=== PATIENT | male | born 1955 | race Caucasian/White ===

== ENCOUNTER 2020-10-10 04:40 | Observation (INO) | payer BC ==
--- NOTE | 2020-10-10 05:09 | ERPHSYRPT ---
- History of Present Illness Time Seen by Provider: 10/10/20 05:08 Source: patient, EMS Exam Limitations: no limitations Physician History: This is an obese 65-year-old gentleman who has a history of hypertension and gastroesophageal reflux disease and presents to the emergency department with body aches, fever, cough, shortness of breath, weakness and decreased oral i ntake over the past 4 days. Patient was diagnosed with COVID-19 4 days ago. Patient spouse is in this hospital for treatment of Covid symptoms. Patient had one episode of vomiting after ingesting Gatorade yesterday. He has no diarrhea. He has no chest pain. He is mildly short of breath. He last took Tylenol at 2300 on 10/09/2020. Timing/Duration: day(s) (4) Fever Severity: moderate Fever Therapy [employer]: Acetaminophen (On 10/09/2020 at 2300) Associated Symptoms: cough, shortness of breath, weakness Allergies/Adverse Reactions: No Known Drug Allergies Allergy (Unverified 10/10/20 04:48) Home Medications: Amlodipine Besylate 1 tab PO DAILY 10/10/20 [History] Aspirin 1 tab PO DAILY 10/10/20 [History] Atorvastatin Calcium 1 tab PO DAILY 10/10/20 [History] Lansoprazole [Prevacid] 1 tab PO DAILY 10/10/20 [History] Losartan Potassium [Cozaar] 1 tab PO BID 10/10/20 [History] Metoprolol Tartrate 1 tab PO BID 10/10/20 [History] Tamsulosin HCl 1 tab PO DAILY 10/10/20 [History] Ticagrelor [Brilinta] 1 tab PO BID 10/10/20 [History] Trazodone HCl 1 tab PO HS 10/10/20 [History] Travel Risk - International Travel Have you traveled outside of the country in past 3 weeks: No - Coronavirus Screening Symptoms: Fever, Cough: New Onset, Shortness of Breath, Headaches/Body Aches/Fatigue Close contact with a COVID-19 positive Pt in past 14-21 Days: Yes - Review of Systems Constitutional: Fever, Weakness Eyes: No Symptoms Ears, Nose, & Throat: No Symptoms Respiratory: Cough, Dyspnea Cardiac: No Symptoms Abdominal/Gastrointestinal: No Symptoms Genitourinary Symptoms: No Symptoms Musculoskeletal: No Symptoms Skin: No Symptoms Neurological: No Symptoms Psychological: No Symptoms Endocrine: No Symptoms Hematologic/Lymphatic: No Symptoms Immunological/Allergic: No Symptoms All Other Systems: Reviewed and Negative - Past Medical History Pertinent Past Medical History: Yes - Past Surgical History Past Surgical History: Yes - Nursing Vital Signs Nursing Vital Signs: Initial Vital Signs Temperature 100.5 F 10/10/20 04:43 Pulse Rate 103 H 10/10/20 04:43 Respiratory Rate 24 10/10/20 04:43 O2 Sat by Pulse Oximetry 96 10/10/20 04:43 Pain Scale Pain Intensity 4 - Physical Exam General Appearance: mild distress, alert, anxiety, obese Eye Exam: PERRL/EOMI, eyes nml inspection ENT Exam: normal ENT inspection, no apparent trauma, hearing grossly normal, TMs normal Neck Exam: normal inspection, non-tender, supple, full range of motion Respiratory Exam: normal breath sounds, lungs clear, no respiratory distress, no accessory muscle use, respiratory distress (Mild), No chest non-tender Cardiovascular/Chest Exam: normal heart sounds, tachycardia Gastrointestinal/Abdominal Exam: soft, non tender, no distention, no mass, no guarding, no ecchymosis, no organomegaly, no pulsatile mass, normal bowel sounds Rectal Exam: not done Extremity Exam: non-tender, normal range of motion, normal inspection, normal capillary refill, no calf tenderness, no pedal edema, pelvis stable, No calf tenderness Neurologic Exam: alert, oriented x 3, cooperative, cork tile floor layer II-XII nml as tested, normal mood/affect, nml cerebellar function, nml station & gait Skin Exam: normal color, warm, dry Lymphatic: No adenopathy SpO2 Interpretation: normal O2 Delivery: Room Air - Course Nursing assessment & vital signs reviewed: Yes EKG Interpreted by Me: RATE (100), Sinus Rhythm, NORMAL AXIS, NORMAL INTERVALS, NORMAL QRS, NORMAL ST-T, Other (No acute ischemic changes on today's EKG. No comparison EKG available) Ordered Tests: Active Orders 24 hr Category Date Time Status Hand Trimmer STAT Care 10/10/20 05:10 Active EKG-ER Only STAT Care 10/10/20 05:09 Active Isolation, Initiate & Maintain STAT Care 10/10/20 05:09 Active Pulse Oximetry (ED) ROUTINE Care 10/10/20 05:10 Active CHEST 1 VIEW (PORTABLE) Stat Exams 10/10/20 05:12 Taken BLOOD CULTURE Stat Lab 10/10/20 05:25 Received CBC W DIFF Stat Lab 10/10/20 05:25 Completed CMP Stat Lab 10/10/20 05:25 Completed D-DIMER QUANTITATIVE Stat Lab 10/10/20 05:25 Completed Ferritin Stat Lab 10/10/20 05:25 Completed LDH-LACTATE DEHYDROGENASE Stat Lab 10/10/20 05:25 Completed Lactic Acid Stat Lab 10/10/20 05:20 Completed [place] Screen Stat Lab 10/10/20 05:25 Completed TROPONIN Q3H Lab 10/10/20 05:25 Completed TROPONIN Q3H Lab 10/10/20 08:15 Ordered TROPONIN Q3H Lab 10/10/20 11:15 Ordered TROPONIN Q3H Lab 10/10/20 14:15 Ordered TROPONIN Q3H Lab 10/10/20 17:15 Ordered Transfer Order Routine Transfer 10/10/20 Ordered Medication Summary Generic Name Dose Route Start Last Admin Trade Name Freq PRN Reason Stop Dose Admin Sodium Chloride 1,000 mls @ 100 mls/hr 10/10/20 05:15 10/10/20 05:32 Sodium Chloride 0.9% 1000 Ml IV 11/09/20 05:14 100 mls/hr .Q10H DINESH Administration Discontinued Medications Generic Name Dose Route Start Last Admin Trade Name Freq PRN Reason Stop Dose Admin Acetaminophen 650 mg 10/10/20 05:12 10/10/20 05:33 Tylenol 325 Mg PO 10/10/20 05:13 650 mg STAT STA Administration Acetaminophen Confirm 10/10/20 05:30 Tylenol 325 Mg Administered 10/10/20 05:31 Dose 650 mg .ROUTE .STK-MED ONE Dexamethasone Sodium Phosphate 8 mg 10/10/20 06:08 10/10/20 06:15 Decadron 10mg Inj. IV 10/10/20 06:09 8 mg STAT ONE Administration Dexamethasone Sodium Phosphate Confirm 10/10/20 06:13 Decadron 10mg Inj. Administered 10/10/20 06:14 Dose 10 mg .ROUTE .STK-MED ONE Ibuprofen 600 mg 10/10/20 05:12 10/10/20 05:34 Motrin 600 Mg PO 10/10/20 05:13 600 mg STAT STA Administration Ibuprofen Confirm 10/10/20 05:30 Motrin 600 Mg Administered 10/10/20 05:31 Dose 600 mg .ROUTE .[employer] ONE Ondansetron HCl 4 mg 10/10/20 05:12 10/10/20 05:32 Zofran 4 Mg/2 Ml Vial IV 10/10/20 05:13 4 mg STAT STA Administration Ondansetron HCl Confirm 10/10/20 05:30 Zofran 4 Mg/2 Ml Vial Administered 10/10/20 05:31 Dose 4 mg .ROUTE .[facility] ONE Lab/Rad Data: Laboratory Result Diagrams 10/10/20 05:25 10/10/20 05:25 Laboratory Results 10/10/20 10/10/20 10/10/20 Range/Units 05:25 05:25 05:25 WBC (4.0-10.5) K/mm3 RBC (4.1-5.6) M/mm3 Hgb (12.5-18.0) gm/dl Hct (42-50) % MCV (78-100) fl MCH (26-32) pg MCHC (32-36) g/dl RDW (11.5-14.0) % Plt Count (150-450) K/mm3 MPV (7.5-11.0) fl Gran % (36.0-66.0) % Eos # (Auto) (0-0.5) Absolute Lymphs (auto) (1.0-4.6) Absolute Monos (auto) (0.0-1.3) Lymphocytes % (24.0-44.0) % Monocytes % (0.0-12.0) % Eosinophils % (0.00-5.0) % Basophils % (0.0-0.4) % Absolute Granulocytes (1.4-6.9) Basophils # (0-0.4) D-Dimer (215-500) ng/mL Sodium (137-145) mmol/L Potassium (3.5-5.1) mmol/L Chloride (98-107) mmol/L Carbon Dioxide (22-30) mmol/L Anion Gap (5-15) MEQ/L BUN (9-20) mg/dL Creatinine (0.66-1.25) mg/dL Estimated GFR ML/MIN Glucose (74-106) mg/dL Lactic Acid (0.4-2.0) Calcium (8.4-10.2) mg/dL Ferritin 263 (17.9-464) ng/mL Total Bilirubin (0.2-1.3) mg/dL AST (17-59) U/L ALT (0-50) U/L Alkaline Phosphatase (38-126) U/L Lactate Dehydrogenase (120-246) U/L Troponin I < 0.012 (0.000-0.034) ng/mL Serum Total Protein (6.3-8.2) g/dL Albumin (3.5-5.0) g/dL Monoscreen NEGATIVE (Negative) 10/10/20 10/10/20 10/10/20 Range/Units 05:25 05:25 05:25 WBC 4.8 (4.0-10.5) K/mm3 RBC 4.22 (4.1-5.6) M/mm3 Hgb 13.0 (12.5-18.0) gm/dl Hct 39.3 L (42-50) % MCV 93.1 (78-100) fl MCH 30.8 (26-32) pg MCHC 33.1 (32-36) g/dl RDW 12.2 (11.5-14.0) % Plt Count 125 L (150-450) K/mm3 MPV 9.5 (7.5-11.0) fl Gran % 84.6 H (36.0-66.0) % Eos # (Auto) 0 (0-0.5) Absolute Lymphs (auto) 0.38 L (1.0-4.6) Absolute Monos (auto) 0.36 (0.0-1.3) Lymphocytes % 7.9 L (24.0-44.0) % Monocytes % 7.5 (0.0-12.0) % Eosinophils % 0.0 (0.00-5.0) % Basophils % 0.0 (0.0-0.4) % Absolute Granulocytes 4.04 (1.4-6.9) Basophils # 0 (0-0.4) D-Dimer 435 (215-500) ng/mL Sodium 129 L (137-145) mmol/L Potassium 4.3 (3.5-5.1) mmol/L Chloride 97 L (98-107) mmol/L Carbon Dioxide 21 L (22-30) mmol/L Anion Gap 14.9 (5-15) MEQ/L BUN 20 (9-20) mg/dL Creatinine 1.19 (0.66-1.25) mg/dL Estimated GFR > 60.0 ML/MIN Glucose 190 H (74-106) mg/dL Lactic Acid (0.4-2.0) Calcium 7.8 L (8.4-10.2) mg/dL Ferritin (17.9-464) ng/mL Total Bilirubin 0.50 (0.2-1.3) mg/dL AST 30 (17-59) U/L ALT 25 (0-50) U/L Alkaline Phosphatase 57 (38-126) U/L Lactate Dehydrogenase 204 (120-246) U/L Troponin I (0.000-0.034) ng/mL Serum Total Protein 6.6 (6.3-8.2) g/dL Albumin 3.8 (3.5-5.0) g/dL Monoscreen (Negative) 10/10/20 Range/Units 05:20 WBC (4.0-10.5) K/mm3 RBC (4.1-5.6) M/mm3 Hgb (12.5-18.0) gm/dl Hct (42-50) % MCV (78-100) fl MCH (26-32) pg MCHC (32-36) g/dl RDW (11.5-14.0) % Plt Count (150-450) K/mm3 MPV (7.5-11.0) fl Gran % (36.0-66.0) % Eos # (Auto) (0-0.5) Absolute Lymphs (auto) (1.0-4.6) Absolute Monos (auto) (0.0-1.3) Lymphocytes % (24.0-44.0) % Monocytes % (0.0-12.0) % Eosinophils % (0.00-5.0) % Basophils % (0.0-0.4) % Absolute Granulocytes (1.4-6.9) Basophils # (0-0.4) D-Dimer (215-500) ng/mL Sodium (137-145) mmol/L Potassium (3.5-5.1) mmol/L Chloride (98-107) mmol/L Carbon Dioxide (22-30) mmol/L Anion Gap (5-15) MEQ/L BUN (9-20) mg/dL Creatinine (0.66-1.25) mg/dL Estimated GFR ML/MIN Glucose (74-106) mg/dL Lactic Acid 1.3 (0.4-2.0) Calcium (8.4-10.2) mg/dL Ferritin (17.9-464) ng/mL Total Bilirubin (0.2-1.3) mg/dL AST (17-59) U/L ALT (0-50) U/L Alkaline Phosphatase (38-126) U/L Lactate Dehydrogenase (120-246) U/L Troponin I (0.000-0.034) ng/mL Serum Total Protein (6.3-8.2) g/dL Albumin (3.5-5.0) g/dL Monoscreen (Negative) - Progress Progress: improved, re-examined Progress Note: 10/10/20 06:07 Chest x-ray shows mild cardiomegaly. There is bibasilar ground glass appearance present 10/10/20 06:29 Medical decision making: This patient is known Covid 19+. He has complaints of shortness of breath, cough, fevers and body aches. I spoke with Dr. Cani Mills and we both feel that the patient be best served by placing him observation on the Covid unit. We will provide the patient with an antitussive medication, remdesivir, low rate IV fluid, Tylenol and Decadron intravenously. 10/10/20 06:30 Discussed with : Ashley Counseled pt/family regarding: lab results, diagnosis, need for follow-up, rad results - Departure Departure Disposition: Observation Clinical Impression: COVID-19 virus infection, Fever Condition: Stable Critical Care Time: Yes Critical Care Time(excluding separately billable procedures): Critical 30-74 mins Referrals: CHRIS ROGERS MD [Primary Care Provider] -
[2020-10-10] MEDS ORDERED: TYLENOL 325 MG PO STA (05:12)
[2020-10-10] MEDS ORDERED: MOTRIN 600 MG PO STA (05:12)
[2020-10-10] MEDS ORDERED: Zofran 4 MG/2 ML VIAL IV STA (05:12)
[2020-10-10] MEDS ORDERED: Sodium Chloride 0.9% 1000 ML 1,000 ML IV SCH (05:15)
[2020-10-10] MEDS ORDERED: TYLENOL 325 MG ONE (05:30)
[2020-10-10] MEDS ORDERED: Zofran 4 MG/2 ML VIAL ONE (05:30)
[2020-10-10] MEDS ORDERED: MOTRIN 600 MG ONE (05:30)
[2020-10-10 05:34] LABS: Absolute Neutrophil Ct (ANC) 4.04 (1.4-6.9); Basophil (Absolute #) 0 (0-0.4); Eosinophil (Absolute #) 0 (0-0.5); Hematocrit 39.3 % (42-50); Lymphocyte (Absolute #) 0.38 (1.0-4.6); Lymphocytes % 7.9 % (24.0-44.0); Mean Cell Volume 93.1 fl (78-100); Mean Corpuscular Hemoglobin 30.8 pg (26-32); Mean Corpuscular Hgb Concent. 33.1 g/dl (32-36); Mean Platelet Volume 9.5 fl (7.5-11.0); Monocyte (Absolute #) 0.36 (0.0-1.3); Monocytes % 7.5 % (0.0-12.0); Neutrophil % 84.6 % (36.0-66.0); Platelet Count 125 K/mm3 (150-450); Red Blood Count 4.22 M/mm3 (4.1-5.6); Red Cell Distribution Width 12.2 % (11.5-14.0); White Blood Count 4.8 K/mm3 (4.0-10.5)
[2020-10-10 05:56] LABS: ALBUMIN 3.8 g/dL (3.5-5.0); ALKALINE PHOSPHATASE 57 U/L (38-126); ANION GAP 14.9 MEQ/L (5-15); BLOOD UREA NITROGEN 20 mg/dL (9-20); CHLORIDE 97 mmol/L (98-107); Calcium 7.8 mg/dL (8.4-10.2); Carbon Dioxide 21 mmol/L (22-30); Creatinine 1 1.19 mg/dL (0.66-1.25); EST GLOMERULAR FILTRATION RATE > 60.0 ML/MIN; Glucose 190 mg/dL (74-106); LDH-LACTATE DEHYDROGENASE 204 U/L (120-246); Potassium 4.3 mmol/L (3.5-5.1); SGOT/AST 30 U/L (17-59); SGPT/ALT 25 U/L (0-50); SODIUM 129 mmol/L (137-145); Total Protein 6.6 g/dL (6.3-8.2)
[2020-10-10] MEDS ORDERED: DECADRON 10MG INJ. IV ONE (06:08)
[2020-10-10] MEDS ORDERED: DECADRON 10MG INJ. ONE (06:13)
[2020-10-10 07:34] LABS: Appearance CLEAR (CLEAR); Bilirubin NEGATIVE (NEGATIVE); Blood NEGATIVE Ery/ul (0-5); Glucose >=500 mg/dL (NEGATIVE); Ketones SMALL (NEGATIVE); Leukocyte Esterase NEGATIVE (NEGATIVE); Nitrite NEGATIVE (NEGATIVE); Protein,Urine Dip 30 (Negative); Specific Gravity 1.012 (1.005-1.025); Urobilinogen NEGATIVE mg/dL (0-1)
--- NOTE | 2020-10-10 07:53 | XRAY ---
Indication: Fever and cough. Covid 19. Comparison: February 16, 2011. Portable chest less inflated with new subtle hazy bibasilar interstitial alveolar opacities. No consolidation/large effusion. Heart not enlarged. Bony thorax intact with mild degenerative changes.
[2020-10-10] MEDS ORDERED: HYDROCODONE-ACETAMIN 2.5-108/5 ML SOLUTION PO PRN (08:19)
[2020-10-10] MEDS ORDERED: Zofran 4 MG/2 ML VIAL IV PRN (08:19)
[2020-10-10] MEDS ORDERED: REMDESIVIR 200 MG in Sodium Chloride 0.9% 250 ML 250 ML IV ONE (09:00)
[2020-10-10] MEDS: Sodium Chloride 0.9% 1000 ML 1,000 ML IV SCH (09:23)
[2020-10-10] MEDS ORDERED: NON-FORMULARY ITEM (Lorazepam [Lorazepam] 2 MG) PO PRN (09:27)
[2020-10-10] MEDS ORDERED: Ativan 1 MG PO PRN (09:40)
[2020-10-10] MEDS ORDERED: NON-FORMULARY ITEM (Cetirizine Hcl [Cetirizine Hcl] 10 MG) PO SCH (10:00)
[2020-10-10] MEDS: Cozaar 50 MG PO SCH ×2 (10:00→21:04)
[2020-10-10] MEDS: NORVASC 5 MG PO SCH (10:00)
[2020-10-10] MEDS ORDERED: NON-FORMULARY ITEM (Metformin Hcl [Glucophage] 1,000 MG) PO SCH (10:00)
[2020-10-10] MEDS ORDERED: LANSOPRAZOLE 15 MG PO SCH (10:00)
[2020-10-10] MEDS ORDERED: BABY ASPIRIN 81 MG CHEW PO SCH (10:00)
[2020-10-10] MEDS ORDERED: NON-FORMULARY ITEM (Atorvastatin Calcium [Atorvastatin Calcium] 80 MG) PO SCH (10:00)
[2020-10-10] MEDS: Glucophage 500 MG PO SCH ×2 (10:00→17:05)
[2020-10-10] MEDS: Protonix 20MG Tablet PO SCH (10:00)
[2020-10-10] MEDS: Lopressor 50 MG PO SCH ×2 (10:00→21:05)
[2020-10-10] MEDS: ECOTRIN 81 MG PO SCH (10:00)
[2020-10-10] MEDS: CLARITIN 10 MG PO SCH (10:01)
[2020-10-10] MEDS: Flomax 0.4 MG PO SCH (10:01)
[2020-10-10] MEDS: BRILINTA PO SCH ×2 (10:01→21:04)
[2020-10-10] MEDS: DECADRON 10MG INJ. IV SCH (17:05)
[2020-10-10] MEDS: TYLENOL 325 MG PO PRN ×2 (17:20→21:39)
[2020-10-10] MEDS: DESYREL 50 MG PO SCH (21:04)
[2020-10-10] MEDS: LIPITOR 40MG PO SCH (21:05)
[2020-10-10] MEDS ORDERED: NON-FORMULARY ITEM (Trazodone Hcl [Trazodone Hcl] 100 MG) PO SCH (22:00)
[2020-10-11] MEDS: Sodium Chloride 0.9% 1000 ML 1,000 ML IV SCH (03:28)
[2020-10-11] MEDS: TYLENOL 325 MG PO PRN ×2 (04:42→17:06)
[2020-10-11] MEDS: DECADRON 10MG INJ. IV SCH ×2 (04:43→18:43)
[2020-10-11 07:05] LABS: Absolute Neutrophil Ct (ANC) 3.95 (1.4-6.9); Basophil (Absolute #) 0 (0-0.4); Eosinophil (Absolute #) 0 (0-0.5); Hematocrit 38.2 % (42-50); Hemoglobin 12.9 gm/dl (12.5-18.0); Lymphocyte (Absolute #) 0.66 (1.0-4.6); Lymphocytes % 13.2 % (24.0-44.0); Mean Cell Volume 91.8 fl (78-100); Mean Corpuscular Hgb Concent. 33.8 g/dl (32-36); Mean Platelet Volume 9.9 fl (7.5-11.0); Neutrophil % 78.8 % (36.0-66.0); Platelet Count 142 K/mm3 (150-450); Red Blood Count 4.16 M/mm3 (4.1-5.6); Red Cell Distribution Width 12.2 % (11.5-14.0)
[2020-10-11 07:54] LABS: ALBUMIN 3.3 g/dL (3.5-5.0); ALKALINE PHOSPHATASE 51 U/L (38-126); ANION GAP 14.9 MEQ/L (5-15); BLOOD UREA NITROGEN 24 mg/dL (9-20); CHLORIDE 104 mmol/L (98-107); Calcium 7.8 mg/dL (8.4-10.2); Carbon Dioxide 18 mmol/L (22-30); Creatinine 1 1.09 mg/dL (0.66-1.25); EST GLOMERULAR FILTRATION RATE > 60.0 ML/MIN; Glucose 186 mg/dL (74-106); Potassium 4.5 mmol/L (3.5-5.1); SGOT/AST 30 U/L (17-59); SGPT/ALT 23 U/L (0-50); SODIUM 133 mmol/L (137-145)
[2020-10-11] MEDS: Glucophage 500 MG PO SCH ×2 (07:57→17:06)
[2020-10-11] MEDS: ECOTRIN 81 MG PO SCH (09:28)
[2020-10-11] MEDS: Lopressor 50 MG PO SCH ×2 (09:28→21:12)
[2020-10-11] MEDS: REMDESIVIR 100 MG in Sodium Chloride 0.9% 100 ML BAG 100 ML IV SCH (09:28)
[2020-10-11] MEDS: Cozaar 50 MG PO SCH ×2 (09:28→21:11)
[2020-10-11] MEDS: Flomax 0.4 MG PO SCH (09:29)
[2020-10-11] MEDS: Protonix 20MG Tablet PO SCH (09:29)
[2020-10-11] MEDS: BRILINTA PO SCH ×2 (09:29→21:11)
[2020-10-11] MEDS: NORVASC 5 MG PO SCH (09:29)
[2020-10-11] MEDS: CLARITIN 10 MG PO SCH (09:38)
[2020-10-11] MEDS: ENOXAPARIN SODIUM SQ SCH (16:05)
[2020-10-11] MEDS: DESYREL 50 MG PO SCH (21:12)
[2020-10-11] MEDS: LIPITOR 40MG PO SCH (21:12)
[2020-10-12] MEDS: Sodium Chloride 0.9% 1000 ML 1,000 ML IV SCH (04:32)
[2020-10-12 05:00] LABS: Hematocrit 43.6 % (42-50); Hemoglobin 14.4 gm/dl (12.5-18.0); Mean Corpuscular Hemoglobin 30.4 pg (26-32); Mean Platelet Volume 10.3 fl (7.5-11.0); Platelet Count 168 K/mm3 (150-450); Red Blood Count 4.74 M/mm3 (4.1-5.6); Red Cell Distribution Width 12.5 % (11.5-14.0); White Blood Count 6.7 K/mm3 (4.0-10.5)
[2020-10-12] MEDS: DECADRON 10MG INJ. IV SCH ×2 (05:04→17:31)
[2020-10-12] MEDS: Glucophage 500 MG PO SCH ×2 (07:35→16:47)
[2020-10-12] MEDS: REMDESIVIR 100 MG in Sodium Chloride 0.9% 100 ML BAG 100 ML IV SCH (08:50)
[2020-10-12] MEDS: Flomax 0.4 MG PO SCH (09:45)
[2020-10-12] MEDS: Lopressor 50 MG PO SCH ×2 (09:45→21:27)
[2020-10-12] MEDS: ECOTRIN 81 MG PO SCH (09:45)
[2020-10-12] MEDS: CLARITIN 10 MG PO SCH (09:45)
[2020-10-12] MEDS: Protonix 20MG Tablet PO SCH (09:45)
[2020-10-12] MEDS: Cozaar 50 MG PO SCH ×2 (09:45→21:27)
[2020-10-12] MEDS: ENOXAPARIN SODIUM SQ SCH (09:46)
[2020-10-12] MEDS: BRILINTA PO SCH ×2 (09:46→21:26)
[2020-10-12] MEDS: NORVASC 5 MG PO SCH (09:46)
[2020-10-12 10:17] LABS: ALBUMIN 3.6 g/dL (3.5-5.0); ALKALINE PHOSPHATASE 50 U/L (38-126); ANION GAP 17.6 MEQ/L (5-15); BLOOD UREA NITROGEN 23 mg/dL (9-20); CHLORIDE 101 mmol/L (98-107); Calcium 8.2 mg/dL (8.4-10.2); Carbon Dioxide 19 mmol/L (22-30); Creatinine 1 0.99 mg/dL (0.66-1.25); EST GLOMERULAR FILTRATION RATE > 60.0 ML/MIN; Glucose 210 mg/dL (74-106); Potassium 4.5 mmol/L (3.5-5.1); SGOT/AST 35 U/L (17-59); SGPT/ALT 24 U/L (0-50); SODIUM 133 mmol/L (137-145); Total Protein 6.3 g/dL (6.3-8.2)
[2020-10-12] MEDS: Ativan 1 MG PO SCH (21:26)
[2020-10-12] MEDS: DESYREL 50 MG PO SCH (21:27)
[2020-10-12] MEDS: LIPITOR 40MG PO SCH ×2 (21:27→21:36)
[2020-10-13 05:35] LABS: Absolute Neutrophil Ct (ANC) 7.45 (1.4-6.9); Basophil (Absolute #) 0 (0-0.4); Eosinophil (Absolute #) 0 (0-0.5); Hematocrit 43.3 % (42-50); Hemoglobin 14.4 gm/dl (12.5-18.0); Lymphocyte (Absolute #) 0.82 (1.0-4.6); Mean Corpuscular Hemoglobin 30.3 pg (26-32); Mean Corpuscular Hgb Concent. 33.3 g/dl (32-36); Mean Platelet Volume 10.3 fl (7.5-11.0); Monocyte (Absolute #) 0.89 (0.0-1.3); Monocytes % 9.7 % (0.0-12.0); Neutrophil % 81.3 % (36.0-66.0); Platelet Count 194 K/mm3 (150-450); Red Blood Count 4.76 M/mm3 (4.1-5.6); Red Cell Distribution Width 12.3 % (11.5-14.0); White Blood Count 9.2 K/mm3 (4.0-10.5)
[2020-10-13] MEDS: DECADRON 10MG INJ. IV SCH ×2 (06:14→17:02)
[2020-10-13 06:26] LABS: ALBUMIN 3.7 g/dL (3.5-5.0); ALKALINE PHOSPHATASE 50 U/L (38-126); ANION GAP 17.3 MEQ/L (5-15); BLOOD UREA NITROGEN 26 mg/dL (9-20); CHLORIDE 100 mmol/L (98-107); Calcium 8.7 mg/dL (8.4-10.2); Carbon Dioxide 24 mmol/L (22-30); Creatinine 1 1.01 mg/dL (0.66-1.25); EST GLOMERULAR FILTRATION RATE > 60.0 ML/MIN; Glucose 190 mg/dL (74-106); Potassium 4.7 mmol/L (3.5-5.1); SGOT/AST 35 U/L (17-59); SGPT/ALT 24 U/L (0-50); SODIUM 137 mmol/L (137-145); Total Protein 6.5 g/dL (6.3-8.2)
[2020-10-13] MEDS: REMDESIVIR 100 MG in Sodium Chloride 0.9% 100 ML BAG 100 ML IV SCH (08:12)
[2020-10-13] MEDS: Glucophage 500 MG PO SCH ×2 (08:12→17:03)
[2020-10-13] MEDS: Lopressor 50 MG PO SCH ×2 (09:37→21:04)
[2020-10-13] MEDS: ENOXAPARIN SODIUM SQ SCH (09:37)
[2020-10-13] MEDS: ECOTRIN 81 MG PO SCH (09:37)
[2020-10-13] MEDS: Cozaar 50 MG PO SCH ×2 (09:37→21:03)
[2020-10-13] MEDS: NORVASC 5 MG PO SCH (09:37)
[2020-10-13] MEDS: CLARITIN 10 MG PO SCH (09:37)
[2020-10-13] MEDS: Protonix 20MG Tablet PO SCH (09:37)
[2020-10-13] MEDS: Flomax 0.4 MG PO SCH (09:37)
[2020-10-13] MEDS: BRILINTA PO SCH ×2 (10:55→21:03)
[2020-10-13] MEDS: TYLENOL 325 MG PO PRN (19:54)
[2020-10-13] MEDS: Ativan 1 MG PO SCH (21:03)
[2020-10-13] MEDS: DESYREL 50 MG PO SCH (21:03)
[2020-10-13] MEDS: LIPITOR 40MG PO SCH (21:04)
[2020-10-14] MEDS: DECADRON 10MG INJ. IV SCH (05:21)
[2020-10-14] MEDS: Glucophage 500 MG PO SCH (07:40)
[2020-10-14 07:57] VITALS: BP 119/81; O2SAT 90
[2020-10-14] MEDS: REMDESIVIR 100 MG in Sodium Chloride 0.9% 100 ML BAG 100 ML IV SCH (09:22)
[2020-10-14] MEDS: CLARITIN 10 MG PO SCH (09:23)
[2020-10-14] MEDS: BRILINTA PO SCH (09:23)
[2020-10-14] MEDS: ENOXAPARIN SODIUM SQ SCH (09:23)
[2020-10-14] MEDS: ECOTRIN 81 MG PO SCH (09:23)
[2020-10-14] MEDS: Cozaar 50 MG PO SCH (09:23)
[2020-10-14] MEDS: Lopressor 50 MG PO SCH (09:24)
[2020-10-14] MEDS: NORVASC 5 MG PO SCH (09:24)
[2020-10-14] MEDS: Flomax 0.4 MG PO SCH (09:24)
[2020-10-14] MEDS: Protonix 20MG Tablet PO SCH (09:25)
[2020-10-14 09:40] LABS: Absolute Neutrophil Ct (ANC) 10.12 (1.4-6.9); Basophil (Absolute #) 0 (0-0.4); Eosinophil (Absolute #) 0 (0-0.5); Hematocrit 44.4 % (42-50); Hemoglobin 14.5 gm/dl (12.5-18.0); Lymphocyte (Absolute #) 0.67 (1.0-4.6); Lymphocytes % 5.7 % (24.0-44.0); Mean Cell Volume 92.5 fl (78-100); Mean Corpuscular Hemoglobin 30.2 pg (26-32); Mean Corpuscular Hgb Concent. 32.7 g/dl (32-36); Mean Platelet Volume 10.3 fl (7.5-11.0); Monocyte (Absolute #) 0.96 (0.0-1.3); Monocytes % 8.2 % (0.0-12.0); Neutrophil % 86.1 % (36.0-66.0); Platelet Count 203 K/mm3 (150-450); Red Cell Distribution Width 12.4 % (11.5-14.0); White Blood Count 11.8 K/mm3 (4.0-10.5)
[2020-10-14 09:47] LABS: ALBUMIN 3.4 g/dL (3.5-5.0); ALKALINE PHOSPHATASE 53 U/L (38-126); ANION GAP 17.8 MEQ/L (5-15); BLOOD UREA NITROGEN 28 mg/dL (9-20); CHLORIDE 100 mmol/L (98-107); Calcium 8.1 mg/dL (8.4-10.2); Carbon Dioxide 21 mmol/L (22-30); Creatinine 1 0.88 mg/dL (0.66-1.25); EST GLOMERULAR FILTRATION RATE > 60.0 ML/MIN; Glucose 253 mg/dL (74-106); Potassium 4.3 mmol/L (3.5-5.1); SGOT/AST 36 U/L (17-59); SGPT/ALT 28 U/L (0-50); SODIUM 135 mmol/L (137-145)
[2020-10-14 10:10] VITALS: PULSE 96
--- NOTE | 2020-10-14 10:22 | DS ---
ADMISSION DIAGNOSIS: COVID pneumonia. DISCHARGE DIAGNOSIS: COVID PNEUMONIA. DISCHARGE PLANS: Oxygen at 2 liters. Prednisone 40 mg x5, 20 mg x5 and 10 mg x5. Follow up with Dr. Mendez in two weeks. He is to isolate for another seven days. Call the hospital immediately if he feels like he is deteriorating. His is still so he will probably stay close with everything. HISTORY: The patient took a vacation to [place] where he and his caught PASCALE, came home and was admitted on 10/10/2020, with some hypoxia, shortness of breath and apparently remained on 2 to 4 liters for the week and the last couple of days have been on 2 liters. He has been walking about his room. Apparently he is increasing his strength. Other comorbidities he has sleep apnea and he is used to being on a mask and has refused to put up with that. He also has some hypertension, hyperlipidemia and benign prostatic hypertrophy. HOME MEDICATIONS: Norvasc unknown dosage q.d., aspirin 81 mg q.d., atorvastatin q.d., Prevacid 30 mg q.d., losartan 1 tablet b.i.d., metoprolol b.i.d., Flomax 1 q.d. HOSPITAL COURSE: He is a 65 year-old and during his stay here no GI symptoms and no cough, just some shortness of breath and fatigue. I talked to him about going back on his treatment for sleep apnea which he pretty obviously has when we watch him sleep. He said, "No thanks". He said, "Just isn't worth it". He has a son at home. We do not know if he has COVID. As he is recovering well and can help take care of him. His will stay in the hospital a few more days until she gets a little bit better. White count was 4.8, hemoglobin 13. Initially the sodium was 129 and came up to normal. His electrolytes came up to normal. His creatinine is normal. He ran no temperature. He really had no complications during his stay and gradually got to the point now his O2 was 3 and probably could be set down to 2. He understands how the oxygen works. He is an intelligent gentleman with a 1957 Camaro with a big block. I told him to call me up when and we will swap cars or something. If he has any problems he is to call Dr. Mendez when he gets home to get an appointment in two weeks. PROGNOSIS: Good.
== END 2020-10-14 11:44 | disposition home or self-care (01) ==
LOC: ED 04:40 → MED SURG 07:52
PROVIDERS: ADMIT Family Medicine; ATTEND Family Medicine
DX: U07.1 COVID-19 (principal); J12.82 Pneumonia due to coronavirus disease 2019; I10 Essential (primary) hypertension; R53.1 Weakness; Z79.899 Other long term (current) drug therapy; R51.9 Headache, unspecified; I51.7 Cardiomegaly; G47.30 Sleep apnea, unspecified; R09.02 Hypoxemia; E78.5 Hyperlipidemia, unspecified
CPT/HCPCS: 36000; 36415; 71045; 80053; 81001; 82728; 83605; 83615; 84484; 85025; 85027; 85379; 86308; 87040; 93005; 93041; 93268; 94760; 94762; 96360; 96374; 96375; 99285; 99291; J1100; J1650; J2405; A9270-GY; G0378

== ENCOUNTER 2020-10-15 17:13 | Inpatient (IN) | payer BC ==
[2020-10-15] MEDS ORDERED: solu-MEDROL 125 MG IV ONE (17:56)
--- NOTE | 2020-10-15 17:57 | ERPHSYRPT ---
- History of Present Illness Time Seen by Provider: 10/15/20 17:17 Source: patient, EMS Exam Limitations: no limitations Patient Subjective Stated Complaint: pt here from home. pt was dx with covid last sunday and was dx from hospital yesterday. he states he cant fix hes own food, has a fever and is weak, pt has 2 children that live in home Triage Nursing Assessment: pt alert, sob with excertions, skin w/d/p, face mask in place, o2 at 2 nc, no edema noted, Physician History: 65 years old male with history of hypertension, hyperlipidemia, GERD, diabetes mellitus with a recent positive COVID-19 who was admitted to Covid unit on 10/10, was discharged yesterday presented in the ER with worsening weakness and persistent fever chills cough and shortness of breath. Patient reports his symptoms are similar to last time when he was admitted. Patient report he is weak enough to do any thing at home. Reports T-max of 100.2. Feeling shortness of breath despite being on 2 L oxygen. Denies any nausea vomiting or abdominal pain. Timing/Duration: day(s) (10), gradual onset, worse Activities at Onset: rest Severity of Dyspnea-Max: moderate Severity of Dyspnea-Current: moderate Possible Cause: illness exposure Modifying Factors: Improves With: oxygen, rest. Worsens With: activity, coughing, deep breath Associated Symptoms: cough, chest pain/discomfort, fever, wheezing, weakness, chills, painful breathing, tightness Allergies/Adverse Reactions: No Known Drug Allergies Allergy (Unverified 10/15/20 17:27) Home Medications: Amlodipine Besylate 5 mg PO DAILY 10/10/20 [History] Aspirin 81 mg PO DAILY 10/10/20 [History] Atorvastatin Calcium 80 mg PO DAILY 10/10/20 [History] Cetirizine HCl 10 mg PO DAILY 10/10/20 [History] LORazepam [Lorazepam] 2 mg PO HS PRN 10/10/20 [History] Lansoprazole [Prevacid] 15 mg PO DAILY 10/10/20 [History] Losartan Potassium [Cozaar] 50 mg PO BID 10/10/20 [History] Meloxicam 15 mg PO DAILY 10/10/20 [History] Metformin HCl [Glucophage] 1,000 mg PO BID 10/10/20 [History] Metoprolol Tartrate 50 mg PO BID 10/10/20 [History] Tamsulosin HCl 0.4 mg PO DAILY 10/10/20 [History] Ticagrelor [Brilinta] 90 mg PO BID 10/10/20 [History] Trazodone HCl 100 mg PO HS 10/10/20 [History] Hx Tetanus, Diphtheria Vaccination/Date Given: No Hx Influenza Vaccination/Date Given: Yes Hx Pneumococcal Vaccination/Date Given: No Immunizations Up to Date: Yes Travel Risk - International Travel Have you traveled outside of the country in past 3 weeks: No - Coronavirus Screening Are you exhibiting any of the following symptoms?: Yes Symptoms: Fever, Cough: New Onset, Shortness of Breath, Headaches/Body Aches/Fatigue Close contact with a COVID-19 positive Pt in past 14-21 Days: Yes - Vaccine Status Have you recieved a Covid-19 vaccination: No - Review of Systems Constitutional: Fever, Chills, Fatigue, Weakness Eyes: No Symptoms Ears, Nose, & Throat: Throat Pain Respiratory: Cough, Dyspnea, Dyspnea on Exertion (BAILEY), Wheezing Cardiac: Chest Pain Abdominal/Gastrointestinal: No Symptoms Genitourinary Symptoms: No Symptoms Musculoskeletal: Myalgias Neurological: No Symptoms Psychological: No Symptoms Endocrine: No Symptoms Hematologic/Lymphatic: No Symptoms Immunological/Allergic: No Symptoms - Past Medical History Pertinent Past Medical History: Yes Cardiac History: Coronary Artery Disease, High Cholesterol, Hypertension, Myocardial Infarction (ND) Endocrine Medical History: Diabetes Type II Musculoskeletal History: Arthritis History: No Pertinent History Psycho-Social History: No Pertinent History Male Reproductive Disorders: No Pertinent History - Past Surgical History Past Surgical History: Yes Cardiac: Cardiac Catheterization, Cardiac Stent - Social History Smoking Status: Never smoker Exposure to second hand smoke: No Drug Use: none Patient Lives Alone: No - Nursing Vital Signs Nursing Vital Signs: Initial Vital Signs Temperature 98.0 F 10/15/20 17:19 Respiratory Rate 32 H 10/15/20 17:19 O2 Sat by Pulse Oximetry 95 10/15/20 17:19 Pain Scale Pain Intensity 4 - Physical Exam General Appearance: mild distress, alert Eye Exam: PERRL/EOMI, eyes nml inspection Ears, Nose, Throat Exam: hearing grossly normal, pharyngeal erythema Neck Exam: normal inspection, non-tender, supple, full range of motion Respiratory Exam: airway intact, diminished breath sounds, wheezing Cardiovascular/Chest Exam: normal heart sounds, regular rate/rhythm Abdominal/Gastrointestinal Exam: soft, normal bowel sounds, No tenderness Extremity Exam: non-tender, normal range of motion Neurologic Exam: alert, oriented x 3, cooperative Skin Exam: normal color SpO2 Interpretation: normal SpO2: 95 O2 Delivery: Nasal Cannula - Course EKG Interpreted by Me: RATE (120), Sinus Tach, NORMAL AXIS, NORMAL INTERVALS, Q- wave (Inferior), Other (PVCs and PACs) Ordered Tests: Active Orders 24 hr Category Date Time Status CHEST 1 VIEW (PORTABLE) Stat Exams 10/15/20 17:56 Ordered CHEST WITH CONTRAST [CT] Stat Exams 10/15/20 18:23 Ordered BLOOD CULTURE Stat Lab 10/15/20 17:45 Ordered CBC W DIFF Stat Lab 10/15/20 17:56 Completed CMP Stat Lab 10/15/20 17:45 Completed D-DIMER QUANTITATIVE Stat Lab 10/15/20 17:45 Completed Lactic Acid Stat Lab 10/15/20 17:56 Ordered MAGNESIUM Stat Lab 10/15/20 17:45 Completed NT PRO BNP Stat Lab 10/15/20 17:45 Completed TROPONIN Q3H Lab 10/15/20 17:45 Received TROPONIN Q3H Lab 10/15/20 21:00 Ordered TROPONIN Q3H Lab 10/16/20 00:00 Ordered TROPONIN Q3H Lab 10/16/20 03:00 Ordered TROPONIN Q3H Lab 10/16/20 06:00 Ordered UA W/RFX UR CULTURE Stat Lab 10/15/20 17:56 Ordered Transfer Order Routine Transfer 10/15/20 Ordered Medication Summary Generic Name Dose Route Start Last Admin Trade Name Freq PRN Reason Stop Dose Admin Azithromycin 500 mg in 250 mls @ 250 mls/hr 10/15/20 18:16 Zithromax 500 Mg/ 250 Ml Nacl Premix IV 10/15/20 19:15 STAT STA Ceftriaxone Sodium/Dextrose 1 g in 50 mls @ 100 mls/hr 10/15/20 18:16 Rocephin 1 Gm-D5w 50 Ml Bag IV 10/15/20 18:45 STAT STA Discontinued Medications Generic Name Dose Route Start Last Admin Trade Name Freq PRN Reason Stop Dose Admin Methylprednisolone Sodium Succinate 125 mg 10/15/20 17:56 10/15/20 18:09 Solu-Medrol 125 Mg IV 10/15/20 17:57 125 mg STAT ONE Administration Methylprednisolone Sodium Succinate Confirm 10/15/20 18:05 Solu-Medrol 125 Mg Administered 10/15/20 18:06 Dose 125 mg .ROUTE .STK-MED ONE Lab/Rad Data: Laboratory Result Diagrams 10/15/20 17:56 10/15/20 17:45 Laboratory Results 10/15/20 10/15/20 10/15/20 Range/Units 17:56 17:45 17:45 WBC 13.1 H (4.0-10.5) K/mm3 RBC 4.39 (4.1-5.6) M/mm3 Hgb 13.4 (12.5-18.0) gm/dl Hct 40.1 L (42-50) % MCV 91.3 (78-100) fl MCH 30.5 (26-32) pg MCHC 33.4 (32-36) g/dl RDW 12.2 (11.5-14.0) % Plt Count 230 (150-450) K/mm3 MPV 10.0 (7.5-11.0) fl Gran % 80.8 H (36.0-66.0) % Eos # (Auto) 0 (0-0.5) Absolute Lymphs (auto) 0.79 L (1.0-4.6) Absolute Monos (auto) 1.73 H (0.0-1.3) Lymphocytes % 6.0 L (24.0-44.0) % Monocytes % 13.2 H (0.0-12.0) % Eosinophils % 0.0 (0.00-5.0) % Basophils % 0.0 (0.0-0.4) % Absolute Granulocytes 10.60 H (1.4-6.9) Basophils # 0 (0-0.4) D-Dimer 1223 H* (215-500) ng/mL Sodium 133 L (137-145) mmol/L Potassium 3.8 (3.5-5.1) mmol/L Chloride 100 (98-107) mmol/L Carbon Dioxide 21 L (22-30) mmol/L Anion Gap 15.0 (5-15) MEQ/L BUN 23 H (9-20) mg/dL Creatinine 1.05 (0.66-1.25) mg/dL Estimated GFR > 60.0 ML/MIN Glucose 295 H (74-106) mg/dL Calcium 7.8 L (8.4-10.2) mg/dL Magnesium 1.6 (1.6-2.3) mg/dL Total Bilirubin 0.90 (0.2-1.3) mg/dL AST 21 (17-59) U/L ALT 23 (0-50) U/L Alkaline Phosphatase 50 (38-126) U/L NT-Pro-B Natriuret Pep 280 (0-900) pg/mL Serum Total Protein 5.7 L (6.3-8.2) g/dL Albumin 3.1 L (3.5-5.0) g/dL - Progress Air Movement: fair Progress Note: 10/15/20 18:24 QWEDWE Blood Culture(s) Obtained: Yes Antibiotics given: Yes Discussed with : Other Will see patient in: hospital (observation) Counseled pt/family regarding: lab results, diagnosis, rad results - Departure Departure Disposition: Observation Clinical Impression: COVID-19 virus infection Condition: Stable Critical Care Time: No Referrals: CHRIS ROGERS MD [Primary Care Provider] -
[2020-10-15] MEDS ORDERED: solu-MEDROL 125 MG ONE (18:05)
[2020-10-15 18:07] LABS: Basophil (Absolute #) 0 (0-0.4); Eosinophil (Absolute #) 0 (0-0.5); Hematocrit 40.1 % (42-50); Hemoglobin 13.4 gm/dl (12.5-18.0); Lymphocyte (Absolute #) 0.79 (1.0-4.6); Mean Cell Volume 91.3 fl (78-100); Mean Corpuscular Hemoglobin 30.5 pg (26-32); Mean Corpuscular Hgb Concent. 33.4 g/dl (32-36); Monocyte (Absolute #) 1.73 (0.0-1.3); Monocytes % 13.2 % (0.0-12.0); Neutrophil % 80.8 % (36.0-66.0); Platelet Count 230 K/mm3 (150-450); Red Blood Count 4.39 M/mm3 (4.1-5.6); Red Cell Distribution Width 12.2 % (11.5-14.0); White Blood Count 13.1 K/mm3 (4.0-10.5)
[2020-10-15] MEDS ORDERED: ROCEPHIN 1 Gm-D5w 50 ml Bag** 1 G/50 ML IVPB IV STA (18:16)
[2020-10-15] MEDS ORDERED: Zithromax 500 MG/ 250 ML NaCl Premix 500 MG/250 ML IVPB IV STA (18:16)
[2020-10-15 18:20] LABS: ALBUMIN 3.1 g/dL (3.5-5.0); ALKALINE PHOSPHATASE 50 U/L (38-126); BLOOD UREA NITROGEN 23 mg/dL (9-20); CHLORIDE 100 mmol/L (98-107); Calcium 7.8 mg/dL (8.4-10.2); Carbon Dioxide 21 mmol/L (22-30); Creatinine 1 1.05 mg/dL (0.66-1.25); EST GLOMERULAR FILTRATION RATE > 60.0 ML/MIN; Glucose 295 mg/dL (74-106); MAGNESIUM 1.6 mg/dL (1.6-2.3); NT PRO BNP 280 pg/mL (0-900); Potassium 3.8 mmol/L (3.5-5.1); SGOT/AST 21 U/L (17-59); SGPT/ALT 23 U/L (0-50); SODIUM 133 mmol/L (137-145); Total Protein 5.7 g/dL (6.3-8.2)
[2020-10-15] MEDS ORDERED: BABY ASPIRIN 81 MG CHEW PO ONE (18:23)
[2020-10-15] MEDS ORDERED: ENOXAPARIN SODIUM SQ SCH (18:30)
[2020-10-15] MEDS ORDERED: ROCEPHIN 1 Gm-D5w 50 ml Bag** 1 G/50 ML IVPB IV ONE (18:34)
[2020-10-15] MEDS ORDERED: BABY ASPIRIN 81 MG CHEW ONE (18:34)
[2020-10-15] MEDS ORDERED: ENOXAPARIN SODIUM SQ ONE (19:27)
[2020-10-15] MEDS ORDERED: Zithromax 500 MG/ 250 ML NaCl Premix 500 MG/250 ML IVPB IV ONE (19:27)
[2020-10-15 20:38] LABS: Slide Review 1 YES
[2020-10-15 20:57] LABS: Appearance CLEAR (CLEAR); Bilirubin NEGATIVE (NEGATIVE); Blood MODERATE Ery/ul (0-5); Glucose >=500 mg/dL (NEGATIVE); Ketones NEGATIVE (NEGATIVE); Leukocyte Esterase TRACE (NEGATIVE); Nitrite NEGATIVE (NEGATIVE); Protein,Urine Dip 100 (Negative); Specific Gravity 1.018 (1.005-1.025); Urobilinogen 2 mg/dL (0-1)
[2020-10-15] MEDS ORDERED: Sodium Chloride 0.9% 1000 ML 1,000 ML IV SCH (20:57)
--- NOTE | 2020-10-15 21:30 | XRAY ---
Indication: Elevated WBC and elevated d-dimer. Multiple contiguous axial images obtained through the chest using 80 cc Isovue 370 contrast and PE protocol. Comparison: None There is good opacification of the pulmonary arteries to include the lobar and segmental branches. No pulmonary embolus. Heart is not enlarged. Aorta is normal in course and caliber without aneurysm/dissection. Small subcentimeter mediastinal lymph nodes. No pathologic mediastinal/hilar lymphadenopathy. Lungs demonstrates diffuse bilateral patchy airspace disease and posterior right lung base subsegmental atelectasis. Bony thorax intact with minimal degenerative changes throughout the spine. Limited upper abdomen demonstrates mild fatty liver. Impression: 1. Negative pulmonary embolus. 2. Diffuse bilateral patchy airspace disease and posterior right lower lobe subsegmental atelectasis. 3. Incidental fatty liver. The Comment: Preliminary interpretation was made by [facility]. No critical discrepancy.
--- NOTE | 2020-10-15 21:32 | XRAY ---
Indication: Short of breath. Pneumonia. Positive Covid 19. Comparison: October 10, 2020. Portable chest demonstrates worsening diffuse bilateral interstitial alveolar opacities without consolidation/large effusion. Heart is not enlarged.
[2020-10-15] MEDS ORDERED: Ativan 1 MG PO PRN (21:51)
[2020-10-15] MEDS ORDERED: ZOCOR 20MG PO ONE (22:00)
[2020-10-15] MEDS ORDERED: VENTOLIN COMMON CANISTER IH PRN (22:19)
[2020-10-15] MEDS: BRILINTA PO SCH (22:21)
[2020-10-15] MEDS: ENOXAPARIN SODIUM SQ SCH (22:22)
[2020-10-15] MEDS: Cozaar 50 MG PO SCH (22:22)
[2020-10-15] MEDS: DESYREL 50 MG PO SCH (22:22)
[2020-10-15] MEDS: TYLENOL 325 MG PO PRN (22:23)
[2020-10-15] MEDS: Pepcid 20 MG VIAL IV SCH (22:23)
[2020-10-15] MEDS: Lopressor 50 MG PO SCH (22:23)
[2020-10-15] MEDS: HUMALOG SQ PRN (22:52)
[2020-10-16] MEDS ORDERED: NORCO 5/325 MG PO PRN (00:48)
[2020-10-16] MEDS ORDERED: HYDROCODONE-CHLORPHEN ER SUSP PO PRN (00:48)
[2020-10-16 03:52] LABS: Absolute Neutrophil Ct (ANC) 10.99 (1.4-6.9); Basophil (Absolute #) 0 (0-0.4); Eosinophil (Absolute #) 0 (0-0.5); Hematocrit 41.5 % (42-50); Hemoglobin 13.5 gm/dl (12.5-18.0); Lymphocyte (Absolute #) 0.61 (1.0-4.6); Lymphocytes % 4.9 % (24.0-44.0); Mean Cell Volume 92.2 fl (78-100); Mean Corpuscular Hgb Concent. 32.5 g/dl (32-36); Mean Platelet Volume 10.3 fl (7.5-11.0); Monocyte (Absolute #) 0.76 (0.0-1.3); Monocytes % 6.1 % (0.0-12.0); Platelet Count 227 K/mm3 (150-450); Red Cell Distribution Width 12.4 % (11.5-14.0); White Blood Count 12.4 K/mm3 (4.0-10.5)
[2020-10-16 06:10] LABS: ALKALINE PHOSPHATASE 48 U/L (38-126); ANION GAP 12.8 MEQ/L (5-15); BLOOD UREA NITROGEN 24 mg/dL (9-20); CHLORIDE 104 mmol/L (98-107); Calcium 7.8 mg/dL (8.4-10.2); Carbon Dioxide 23 mmol/L (22-30); Creatinine 1 0.99 mg/dL (0.66-1.25); EST GLOMERULAR FILTRATION RATE > 60.0 ML/MIN; Glucose 309 mg/dL (74-106); Potassium 4.1 mmol/L (3.5-5.1); SGOT/AST 19 U/L (17-59); SGPT/ALT 22 U/L (0-50); SODIUM 135 mmol/L (137-145); Total Protein 5.5 g/dL (6.3-8.2)
[2020-10-16] MEDS: HUMALOG SQ PRN ×4 (07:48→21:47)
[2020-10-16] MEDS ORDERED: NON-FORMULARY ITEM (Meloxicam [Meloxicam] 15 MG) PO PRN (09:54)
[2020-10-16] MEDS ORDERED: NON-FORMULARY ITEM (Cetirizine Hcl [Cetirizine Hcl] 10 MG) PO PRN (09:54)
[2020-10-16] MEDS ORDERED: TYLENOL 325 MG PO PRN (09:54)
[2020-10-16] MEDS ORDERED: CLARITIN 10 MG PO PRN (09:58)
[2020-10-16] MEDS ORDERED: MELOXICAM PO PRN (09:59)
[2020-10-16] MEDS ORDERED: NON-FORMULARY ITEM (Atorvastatin Calcium [Atorvastatin Calcium] 80 MG) PO SCH (10:00)
[2020-10-16] MEDS ORDERED: LANSOPRAZOLE 15 MG PO SCH (10:00)
[2020-10-16] MEDS ORDERED: DECADRON 10MG INJ. IV SCH (10:00)
[2020-10-16] MEDS: ECOTRIN 81 MG PO SCH (10:45)
[2020-10-16] MEDS: Pepcid 20 MG VIAL IV SCH ×2 (10:45→21:47)
[2020-10-16] MEDS: NORVASC 5 MG PO SCH (10:45)
[2020-10-16] MEDS: Lopressor 50 MG PO SCH ×2 (10:45→21:47)
[2020-10-16] MEDS: Cozaar 50 MG PO SCH ×2 (10:45→21:44)
[2020-10-16] MEDS: Protonix 20MG Tablet PO SCH (10:46)
[2020-10-16] MEDS: BRILINTA PO SCH ×2 (10:47→21:44)
[2020-10-16] MEDS: DECADRON 10MG INJ. IV SCH ×2 (10:50→21:45)
[2020-10-16] MEDS ORDERED: ROCEPHIN 1 Gm-D5w 50 ml Bag** 1 G/50 ML IVPB IV SCH (18:00)
[2020-10-16] MEDS: TYLENOL 325 MG PO PRN (18:55)
[2020-10-16] MEDS ORDERED: Zithromax 500 MG/ 250 ML NaCl Premix 500 MG/250 ML IVPB IV SCH (19:00)
[2020-10-16] MEDS: DESYREL 50 MG PO SCH (21:46)
[2020-10-16] MEDS: Flomax 0.4 MG PO SCH (21:47)
[2020-10-16] MEDS: ENOXAPARIN SODIUM SQ SCH (21:47)
[2020-10-17 06:08] LABS: Absolute Neutrophil Ct (ANC) 13.66 (1.4-6.9); Basophil (Absolute #) 0 (0-0.4); Eosinophil (Absolute #) 0 (0-0.5); Hematocrit 37.8 % (42-50); Hemoglobin 12.5 gm/dl (12.5-18.0); Lymphocyte (Absolute #) 0.68 (1.0-4.6); Lymphocytes % 4.4 % (24.0-44.0); Mean Cell Volume 91.5 fl (78-100); Mean Corpuscular Hemoglobin 30.3 pg (26-32); Mean Corpuscular Hgb Concent. 33.1 g/dl (32-36); Mean Platelet Volume 10.2 fl (7.5-11.0); Monocyte (Absolute #) 1.09 (0.0-1.3); Monocytes % 7.1 % (0.0-12.0); Neutrophil % 88.5 % (36.0-66.0); Platelet Count 287 K/mm3 (150-450); Red Blood Count 4.13 M/mm3 (4.1-5.6); Red Cell Distribution Width 12.2 % (11.5-14.0); White Blood Count 15.4 K/mm3 (4.0-10.5)
[2020-10-17 06:32] LABS: ALKALINE PHOSPHATASE 47 U/L (38-126); ANION GAP 13.5 MEQ/L (5-15); BLOOD UREA NITROGEN 26 mg/dL (9-20); CHLORIDE 101 mmol/L (98-107); Calcium 8.2 mg/dL (8.4-10.2); Carbon Dioxide 23 mmol/L (22-30); Creatinine 1 0.76 mg/dL (0.66-1.25); EST GLOMERULAR FILTRATION RATE > 60.0 ML/MIN; Glucose 268 mg/dL (74-106); Potassium 4.4 mmol/L (3.5-5.1); SGOT/AST 19 U/L (17-59); SGPT/ALT 21 U/L (0-50); SODIUM 133 mmol/L (137-145); Total Protein 5.7 g/dL (6.3-8.2)
[2020-10-17] MEDS: HUMALOG SQ PRN ×4 (08:13→21:14)
[2020-10-17] MEDS: Pepcid 20 MG VIAL IV SCH ×2 (10:42→21:14)
[2020-10-17] MEDS: NORVASC 5 MG PO SCH (10:42)
[2020-10-17] MEDS: Lopressor 50 MG PO SCH ×2 (10:42→21:14)
[2020-10-17] MEDS: Cozaar 50 MG PO SCH ×2 (10:42→21:13)
[2020-10-17] MEDS: ECOTRIN 81 MG PO SCH (10:42)
[2020-10-17] MEDS: BRILINTA PO SCH ×2 (10:43→21:13)
[2020-10-17] MEDS: Protonix 20MG Tablet PO SCH (10:43)
[2020-10-17] MEDS: ROCEPHIN 1 Gm-D5w 50 ml Bag** 1 G/50 ML IVPB IV SCH (10:44)
[2020-10-17] MEDS: DECADRON 10MG INJ. IV SCH ×2 (10:55→21:13)
[2020-10-17] MEDS: ENOXAPARIN SODIUM SQ SCH (21:13)
[2020-10-17] MEDS: DESYREL 50 MG PO SCH (21:13)
[2020-10-17] MEDS: Flomax 0.4 MG PO SCH (21:14)
[2020-10-18 05:19] LABS: Absolute Neutrophil Ct (ANC) 11.59 (1.4-6.9); BASOPHIL % 0.1 % (0.0-0.4); Basophil (Absolute #) 0.01 (0-0.4); Eosinophil (Absolute #) 0 (0-0.5); Hematocrit 39.8 % (42-50); Hemoglobin 13.1 gm/dl (12.5-18.0); Lymphocyte (Absolute #) 0.58 (1.0-4.6); Lymphocytes % 4.4 % (24.0-44.0); Mean Cell Volume 91.7 fl (78-100); Mean Corpuscular Hemoglobin 30.2 pg (26-32); Mean Corpuscular Hgb Concent. 32.9 g/dl (32-36); Mean Platelet Volume 10.1 fl (7.5-11.0); Monocyte (Absolute #) 0.88 (0.0-1.3); Monocytes % 6.7 % (0.0-12.0); Neutrophil % 88.8 % (36.0-66.0); Platelet Count 316 K/mm3 (150-450); Red Blood Count 4.34 M/mm3 (4.1-5.6); Red Cell Distribution Width 12.2 % (11.5-14.0); White Blood Count 13.1 K/mm3 (4.0-10.5)
[2020-10-18] MEDS: HUMALOG SQ PRN ×4 (08:10→21:30)
[2020-10-18] MEDS: DECADRON 10MG INJ. IV SCH ×2 (09:05→21:29)
[2020-10-18] MEDS: Pepcid 20 MG VIAL IV SCH ×2 (09:06→21:29)
[2020-10-18] MEDS: BRILINTA PO SCH ×2 (09:07→21:29)
[2020-10-18] MEDS: ECOTRIN 81 MG PO SCH (09:07)
[2020-10-18] MEDS: Lopressor 50 MG PO SCH ×2 (09:07→21:29)
[2020-10-18] MEDS: NORVASC 5 MG PO SCH (09:07)
[2020-10-18] MEDS: Cozaar 50 MG PO SCH ×2 (09:07→21:29)
[2020-10-18] MEDS: ROCEPHIN 1 Gm-D5w 50 ml Bag** 1 G/50 ML IVPB IV SCH (09:08)
[2020-10-18] MEDS: Protonix 20MG Tablet PO SCH (10:20)
[2020-10-18 11:34] LABS: Slide Review 1 YES
--- NOTE | 2020-10-18 11:35 | HP ---
CHIEF COMPLAINT: Fatigue, COVID pneumonia and can barely walk. HISTORY OF PRESENT ILLNESS: The patient is a 65 year-old white male who had been discharged after being here about four days with COVID pneumonia. He was down to 2 liters of oxygen and walked about the room and doing well when we sent home. He has two adult children who we thought would take care of him but he said they will not help him and that his is still here with pretty bad COVID. He was short of breath with exertion, alert, on 2 liters. His O2 saturation was 92%. He has a history of hypertension, hyperlipidemia, gastroesophageal reflux disease, diabetes mellitus, recent COVID diagnosis probably seven or eight days ago. He has no cough, no nausea. He has a history of sleep apnea but decided not to take treatment after using a mask for six months, he states. He said he is not short of breath with oxygen on but he just cannot get up and move around. He is unable to cook and his cough is a little worse. He is also having sharp chest pain on the side which is new. He said he has had some chills and fever. HOME MEDICATIONS: Norvasc 5, aspirin 81, atorvastatin 80, Zyrtec 10, lorazepam 2 mg h.s. if needed, Prevacid 15 q.d., losartan 50 b.i.d., meloxicam 15 q.d., metformin 1,000 b.i.d., metoprolol 50 b.i.d., Brilinta 90 b.i.d., trazodone 100 h,s. ALLERGIES: NKDA. TRAVEL RISK: The patient has been to [place] and [place] where they probably caught COVID three weeks ago. VACCINE STATUS: No vaccine. REVIEW OF SYSTEMS: CONSTITUTIONAL: The patient states he has had a fever, chills, fatigue and a little more weakness since he went home. HEENT: No drainage. He has a sore throat. CHEST: Sharp chest pain right side. Short of breath on exertion not much worse on the left, feels like he is wheezing. He is on 2 liters of oxygen normally. ABDOMEN: No nausea or vomiting. He could eat but there is no one to cook for him. : No symptoms. MUSCULOSKELENTAL: Just aches all over. Arthritic problems with his knees and back which he takes medication. PHYSICAL EXAMINATION: The patient is alert and orientated, in no severe distress. He looks more tired than when I saw him the day before when I examined him in the emergency room before admission. HEENT: Normal throat. Normal hearing. NECK: No nodes. No tenderness. Normal range of motion. CVS: No murmurs or gallops. CHEST: Tenderness in the right seventh and eighth rib, worse with inspiration. ABDOMEN: No tenderness or organomegaly. NEUROLOGIC: He is alert and oriented x3. He is cooperative and pleasant. SKIN: Normal color. LAB DATA AND TESTS: Chest x-ray shows no difference in bilateral, fluffy infiltrates. His D-dimer was a little bit higher at 1,223. He was anticoagulated while in the hospital. White count was 13,000, a little higher than what he was in the hospital previously. Hemoglobin 13. IMPRESSION: The patient was sent home with COVID pneumonia. There is no one really able or willing to take care of him and he is becoming increasing weaker. His D-dimer is up. His white count is up. He was started on some Rocephin and Zithromax. He certainly has a community acquired pneumonia. We admitted him for further evaluation. PROGNOSIS: [place] to be good. ADDENDUM: The patient will be continued on his methylprednisolone. He did receive it for five days and Remdesivir.
[2020-10-18] MEDS: DESYREL 50 MG PO SCH (21:29)
[2020-10-18] MEDS: Flomax 0.4 MG PO SCH (21:29)
[2020-10-18] MEDS: ENOXAPARIN SODIUM SQ SCH (21:30)
[2020-10-18] MEDS ORDERED: ZOCOR 20MG PO SCH (22:00)
[2020-10-19 05:42] LABS: Basophil (Absolute #) 0 (0-0.4); Eosinophil % 0.1 % (0.00-5.0); Eosinophil (Absolute #) 0.01 (0-0.5); Hematocrit 39.9 % (42-50); Hemoglobin 13.1 gm/dl (12.5-18.0); Lymphocyte (Absolute #) 0.71 (1.0-4.6); Lymphocytes % 6.8 % (24.0-44.0); Mean Cell Volume 91.7 fl (78-100); Mean Corpuscular Hemoglobin 30.1 pg (26-32); Mean Corpuscular Hgb Concent. 32.8 g/dl (32-36); Mean Platelet Volume 10.4 fl (7.5-11.0); Monocyte (Absolute #) 0.93 (0.0-1.3); Monocytes % 8.9 % (0.0-12.0); Neutrophil % 84.2 % (36.0-66.0); Platelet Count 327 K/mm3 (150-450); Red Blood Count 4.35 M/mm3 (4.1-5.6); Red Cell Distribution Width 12.1 % (11.5-14.0); White Blood Count 10.5 K/mm3 (4.0-10.5)
[2020-10-19] MEDS: Cozaar 50 MG PO SCH (09:53)
[2020-10-19] MEDS: Lopressor 50 MG PO SCH (09:53)
[2020-10-19] MEDS: Protonix 20MG Tablet PO SCH (09:53)
[2020-10-19] MEDS: NORVASC 5 MG PO SCH (09:53)
[2020-10-19] MEDS: Pepcid 20 MG VIAL IV SCH (09:54)
[2020-10-19] MEDS: ECOTRIN 81 MG PO SCH (09:54)
[2020-10-19] MEDS: BRILINTA PO SCH (09:54)
[2020-10-19] MEDS: HUMALOG SQ PRN (09:58)
[2020-10-19] MEDS: DECADRON 10MG INJ. IV SCH (09:59)
[2020-10-19] MEDS ORDERED: Levofloxacin 500 MG Tablet PO SCH (10:00)
--- NOTE | 2020-10-19 11:04 | DS ---
ADMISSION DIAGNOSIS: COVID. DISCHARGE DIAGNOSES: 1) COVID PNEUMONIA. 2) HYPOXIA MAYBE FROM SLEEP APNEA. 3) SEPSIS FROM STAPHYYLOCOCCUS AUREUS. 4) DIABETES MELLITUS. 5) SLEEP APNEA FOR WHICH HE REFUSES TO WEAR A MACHINE. 6) HYPERTENSION. 7) HYPERLIPIDEMIA. HOSPITAL COURSE: The patient was admitted initially on 10/08/2020 with his with COVID pneumonia. They had returned from a trip from [place]. They have not had any vaccines and probably did not use masks. He improved much quicker than his and discharged home on 2 liters of oxygen at night. He came back when he did not improve. He felt because he had no home health care from his adult children as they were sick also and had nothing to eat for a while and just felt bad. Two blood cultures grew Staphylococcus Aureus and so he was placed on some Rocephin which it was sensitive to. He had been on Levaquin to go home as it was sensitive to that, too. Initially, he did have a CT which showed no pulmonary embolism, diffuse bilateral patchy airspace disease and some atelectasis on the right with fatty liver. During his hospital stay he rapidly became much better and the next day he felt much better. However, he did have some antibiotics in the emergency room and the Staphylococcus Aureus may have been another factor here. Initially I thought it was contaminate but both blood cultures came back positive. He does have an ugly IV site on his left arm. D-dimer was up to 714 on admission. His white count was 15,000 and it is now 10,000. Hemoglobin was 13. Blood sugars were elevated. He is a diabetic. We had to stop his Metformin and was on Decadron of course. He has gotten Remdesivir for five days prior to this admission as did his . He is not vaccinated but will consider getting the vaccine two months after this admission per CDC recommendation. He was asked to see his regular doctor, Dr. Mendez, in two weeks and kind of isolate for a week. He is not able to go to work I am sure for the next two to four weeks. The only change in his home medicine was that he will be on Levaquin 250 mg a day for five days. He is to return to the emergency room if he feels bad. PROGNOSIS: Good.
[2020-10-19 12:32] VITALS: BP 152/90; PULSE 75; O2SAT 95
== END 2020-10-19 14:10 | disposition home or self-care (01) | DRG 177 ==
LOC: ED 17:13 → MED SURG 20:55 → OBSVTOIN 10-16 16:19
PROVIDERS: ADMIT Family Medicine; ATTEND Family Medicine
DX: U07.1 COVID-19 (principal); J12.82 Pneumonia due to coronavirus disease 2019; A41.01 Sepsis due to Methicillin susceptible Staphylococcus aureus; R53.1 Weakness; I10 Essential (primary) hypertension; E11.9 Type 2 diabetes mellitus without complications; E78.5 Hyperlipidemia, unspecified; Z79.899 Other long term (current) drug therapy; R51.9 Headache, unspecified; R07.9 Chest pain, unspecified; R09.02 Hypoxemia; G47.30 Sleep apnea, unspecified
CPT/HCPCS: 36415; 71045; 71260; 80053; 81001; 82947; 83036; 83605; 83735; 83880; 84484; 85025; 85379; 87040; 87077; 87186; 93268; 94762; 96360; 96365; 96367; 96374; 99285; J0456; J0696; J1100; J1650; J1817; J2930; A9270-GY; G0378